=== PATIENT | male | born 1995 | race American Indian/Alaskan Native ===

== ENCOUNTER → 2017-04-25 | Emergency (ER) | payer SELFPAY ==
[~2017-04-25] MED LIST: ATIVAN IV ONE; ATIVAN IV SCH; ATIVAN ONE; GEODON IM ONE; K-DUR PO ONE; NACL 0.9% 1000 ML 1,000 ML IV ONE
[2017-04-25 06:08] LABS: Basophils % (Auto) 0.5 % (0.0-1.8); Eosinophils % (Auto) 0.6 % (0.0-4.3); Hematocrit 43.3 % (35.5-45.6); Hemoglobin 14.6 gm/dl (11.8-15.2); Mean Corpuscular HGB Conc 34 % (32-34); Mean Corpuscular Hemoglobin 30 pg (28-32); Mean Corpuscular Volume 88 fl (84-94); Platelet Count 179 K/mm3 (140-440); Red Blood Count 4.94 M/mm3 (3.65-5.03); Red Cell Distribution Width 13.6 % (13.2-15.2); White Blood Count 9.4 K/mm3 (4.5-11.0)
[2017-04-25 06:16] LABS: Anion Gap 17 mmol/L; BUN/Creatinine Ratio 14; Blood Urea Nitrogen 13 mg/dL (9-20); Calcium 9.2 mg/dL (8.4-10.2); Carbon Dioxide 25 mmol/L (22-30); Chloride 105.4 mmol/L (98-107); Glucose 122 mg/dL (75-100); Potassium 3.5 mmol/L (3.6-5.0); Sodium 144 mmol/L (137-145)
--- NOTE | 2017-04-25 06:50 | Emergency Department Report ---
ED Psych HPI - General Chief Complaint: Psych Stated Complaint: UNRESPONSIVE Time Seen by Provider: 04/25/17 06:13 Source: EMS Mode of arrival: Stretcher Limitations: Altered Mental Status - History of Present Illness Initial Comments: Unknown male presents to the hospital after being brought in by EMS. Patient is nonverbal. Patient he was standing up and staring at people outside of the QT. Patient has superficial abrasions arm and neck. He will not open eyes to voice or follow commands. He will not speak currently. - Related Data Allergies Allergy/AdvReac Type Severity Reaction Status Date / Time No Known Allergies Allergy Unverified 04/25/17 05:26 ED Review of Systems ROS: Stated complaint: UNRESPONSIVE Other details as noted in HPI Comment: Unobtainable due to pts medical conditions ED Physical Exam - General Limitations: Other - Other Other exam information: General: No limitations, patient is alert in no acute distress Head exam: Atraumatic Eyes exam: Normal appearance, pupils equal reactive to light ENT: Moist mucous membrane Neck exam: Normal inspection, full range of motion, no meningismus nontender Respiratory exam: Clear to auscultation bilateral, no wheezes, rales, crackles Cardiovascular: Normal rate and rhythm Abdomen: Soft, nondistended, and nontender, with normal bowel sounds, no rebound, or guarding Extremity: Full range of motion normal inspection no deformity Back: Normal Inspection, full range of motion, no tenderness Neurologic: Awake, will not answer questions, will not follow commands but moves all extremities equally and sensation grossly intact Psychiatric: normal affect, normal mood Skin: Superficial abrasions to arms ED Course Vital Signs 04/25/17 04/25/17 04/25/17 05:14 05:15 05:27 Temperature 98.1 F Pulse Rate 87 74 88 Respiratory 14 11 L 18 Rate Blood Pressure 146/83 146/83 Blood Pressure [Left] O2 Sat by Pulse 98 99 98 Oximetry 04/25/17 04/25/17 04/25/17 05:30 05:31 05:45 Temperature 98.1 F Pulse Rate 83 88 72 Respiratory 12 18 21 Rate Blood Pressure 146/83 153/88 Blood Pressure 146/83 [Left] O2 Sat by Pulse 99 98 100 Oximetry 04/25/17 04/25/17 04/25/17 06:00 06:15 06:30 Temperature Pulse Rate 96 H 94 H 70 Respiratory 51 H 11 L 15 Rate Blood Pressure 153/88 140/94 140/94 Blood Pressure [Left] O2 Sat by Pulse 99 98 Oximetry 04/25/17 04/25/17 04/25/17 06:45 06:54 07:00 Temperature Pulse Rate 77 81 Respiratory 15 18 8 L Rate Blood Pressure 146/78 137/90 Blood Pressure [Left] O2 Sat by Pulse 98 100 99 Oximetry 04/25/17 04/25/17 04/25/17 07:15 07:31 08:01 Temperature Pulse Rate 73 Respiratory 12 Rate Blood Pressure 132/75 132/75 140/87 Blood Pressure [Left] O2 Sat by Pulse 98 98 Oximetry 04/25/17 04/25/17 04/25/17 08:15 08:30 08:45 Temperature Pulse Rate Respiratory Rate Blood Pressure 141/81 146/65 142/74 Blood Pressure [Left] O2 Sat by Pulse 100 98 99 Oximetry 04/25/17 04/25/17 04/25/17 09:17 09:30 09:45 Temperature Pulse Rate Respiratory Rate Blood Pressure 146/65 157/90 141/87 Blood Pressure [Left] O2 Sat by Pulse 100 100 Oximetry 04/25/17 04/25/17 04/25/17 10:00 10:15 10:30 Temperature Pulse Rate Respiratory Rate Blood Pressure 140/90 140/90 143/97 Blood Pressure [Left] O2 Sat by Pulse 99 99 100 Oximetry 04/25/17 04/25/17 04/25/17 10:45 11:00 11:15 Temperature Pulse Rate Respiratory Rate Blood Pressure 143/97 142/98 142/98 Blood Pressure [Left] O2 Sat by Pulse 100 98 100 Oximetry 04/25/17 04/25/17 04/25/17 11:30 11:45 12:00 Temperature Pulse Rate Respiratory Rate Blood Pressure 141/90 141/90 139/92 Blood Pressure [Left] O2 Sat by Pulse 100 100 Oximetry 04/25/17 12:15 Temperature Pulse Rate Respiratory Rate Blood Pressure 139/92 Blood Pressure [Left] O2 Sat by Pulse 100 Oximetry - Reevaluation(s) Reevaluation #1: 04/25/17 Patient was able to ambulate in the ED without difficulty. Patient required physical restraints and Geodon 10 mg because he was agitated and attempting to walk around. Patient still not speaking or following commands even after Geodon 10 mg. Reevaluation #2: 04/25/17 15:03 Patient drowsy after Geodon. By mouth potassium has been ordered for mild hypokalemia. - Consultations Consultation #1: 04/25/17 13:40 Mental health evaluation was performed. Unable to obtain much information from patient since he is nonverbal. Awaiting further psychiatric evaluation and placement ED Medical Decision Making - Lab Data Result diagrams: 04/25/17 05:47 04/25/17 05:47 Lab Results 04/25/17 04/25/17 04/25/17 Range/Units 05:41 05:47 05:47 WBC (4.5-11.0) K/mm3 RBC (3.65-5.03) M/mm3 Hgb (11.8-15.2) gm/dl Hct (35.5-45.6) % MCV (84-94) fl MCH (28-32) pg MCHC (32-34) % RDW (13.2-15.2) % Plt Count (140-440) K/mm3 Lymph % (Auto) (13.4-35.0) % [place] % (Auto) (0.0-7.3) % Eos % (Auto) (0.0-4.3) % Baso % (Auto) (0.0-1.8) % Lymph # (1.2-5.4) K/mm3 [place]ue # (0.0-0.8) K/mm3 Eos # (0.0-0.4) K/mm3 Baso # (0.0-0.1) K/mm3 Seg Neutrophils % (40.0-70.0) % Seg Neutrophils # (1.8-7.7) K/mm3 Sodium 144 (137-145) mmol/L Potassium 3.5 L (3.6-5.0) mmol/L Chloride 105.4 (98-107) mmol/L Carbon Dioxide 25 (22-30) mmol/L Anion Gap 17 mmol/L BUN 13 (9-20) mg/dL Creatinine 0.9 (0.8-1.5) mg/dL Estimated GFR > 60 ml/min BUN/Creatinine Ratio 14 % Glucose 122 H (75-100) mg/dL POC Glucose 104 (70-105) Calcium 9.2 (8.4-10.2) mg/dL Urine Color (Yellow) Urine Turbidity (Clear) Urine pH (5.0-7.0) Ur Specific [place] (1.003-1.030) Urine Protein (Negative) mg/dL Urine Glucose (UA) (Negative) mg/dL Urine Ketones (Negative) mg/dL Urine Blood (Negative) Urine Nitrite (Negative) Urine Bilirubin (Negative) Urine Urobilinogen (<2.0) mg/dL Ur Leukocyte Esterase (Negative) Urine WBC (Auto) (0.0-6.0) /HPF Urine RBC (Auto) (0.0-6.0) /HPF Urine Mucus /HPF Urine Opiates Screen Urine Methadone Screen Ur Barbiturates Screen Ur Phencyclidine Scrn Ur Amphetamines Screen U Benzodiazepines Scrn Urine Cocaine Screen U Marijuana (THC) Screen Drugs of Abuse Note Plasma/Serum Alcohol < 0.01 (0-0.07) gm% 04/25/17 04/25/17 04/25/17 Range/Units 05:47 06:08 06:08 WBC 9.4 (4.5-11.0) K/mm3 RBC 4.94 (3.65-5.03) M/mm3 Hgb 14.6 (11.8-15.2) gm/dl Hct 43.3 (35.5-45.6) % MCV 88 (84-94) fl MCH 30 (28-32) pg MCHC 34 (32-34) % RDW 13.6 (13.2-15.2) % Plt Count 179 (140-440) K/mm3 Lymph % (Auto) 13.1 L (13.4-35.0) % [place] % (Auto) 9.0 H (0.0-7.3) % Eos % (Auto) 0.6 (0.0-4.3) % Baso % (Auto) 0.5 (0.0-1.8) % Lymph # 1.2 (1.2-5.4) K/mm3 [place] # 0.8 (0.0-0.8) K/mm3 Eos # 0.1 (0.0-0.4) K/mm3 Baso # 0.0 (0.0-0.1) K/mm3 Seg Neutrophils % 76.8 H (40.0-70.0) % Seg Neutrophils # 7.2 (1.8-7.7) K/mm3 Sodium (137-145) mmol/L Potassium (3.6-5.0) mmol/L Chloride (98-107) mmol/L Carbon Dioxide (22-30) mmol/L Anion Gap mmol/L BUN (9-20) mg/dL Creatinine (0.8-1.5) mg/dL Estimated GFR ml/min BUN/Creatinine Ratio % Glucose (75-100) mg/dL POC Glucose (70-105) Calcium (8.4-10.2) mg/dL Urine Color Yellow (Yellow) Urine Turbidity Clear (Clear) Urine pH 5.0 (5.0-7.0) Ur Specific [place] 1.020 (1.003-1.030) Urine Protein <15 mg/dl (Negative) mg/dL Urine Glucose (UA) Neg (Negative) mg/dL Urine Ketones Neg (Negative) mg/dL Urine Blood Neg (Negative) Urine Nitrite Neg (Negative) Urine Bilirubin Neg (Negative) Urine Urobilinogen < 2.0 (<2.0) mg/dL Ur Leukocyte Esterase Neg (Negative) Urine WBC (Auto) 3.0 (0.0-6.0) /HPF Urine RBC (Auto) 4.0 (0.0-6.0) /HPF Urine Mucus Few /HPF Urine Opiates Screen Presumptive negative Urine Methadone Screen Presumptive negative Ur Barbiturates Screen Presumptive negative Ur Phencyclidine Scrn Presumptive negative Ur Amphetamines Screen Presumptive negative U Benzodiazepines Scrn Presumptive negative Urine Cocaine Screen Presumptive negative U Marijuana (THC) Screen Presumptive positive Drugs of Abuse Note Disclamer Plasma/Serum Alcohol (0-0.07) gm% - Radiology Data Radiology results: report reviewed (ct head: naf) - Medical Decision Making Patient is not verbal in the ED and will not reliably follow commands. Labs and CT do not show any acute abnormality. UDS only positive for marijuana. Unfortunately there is no other contact information available for the patient - Differential Diagnosis psychosis, encephalopathy, drug abuse, intracranial lesion Critical Care Time: No Critical care attestation.: If time is entered above; I have spent that time in minutes in the direct care of this critically ill patient, excluding procedure time. ED Disposition Clinical Impression: Mutism, Medical clearance for psychiatric admission Disposition: [id number] PSY HOSP/PSY UNIT Is pt being admited?: No Condition: Stable Time of Disposition: 15:03 (awaiting acceptance)
[2017-04-25 07:14] LABS: Urine Drugs of Abuse Note Disclamer
[2017-04-25 07:25] LABS: Bilirubin,Urine NEG (Negative); Blood,Urine NEG (Negative); Ketones,Urine NEG (Negative); Leukocyte Esterase,Urine NEG (Negative); Mucus,Urine FEW /HPF; Nitrite,Urine NEG (Negative); Protein,Urine <15 mg/dL mg/dL (Negative); Urobilinogen,Urine < 2.0 mg/dL (<2.0)
--- NOTE | 2017-04-25 09:43 | Cat Scan Report ---
CT HEAD WITHOUT CONTRAST: 04/25/17 09:04 CLINICAL: Altered mental status. Nonverbal. TECHNIQUE: 2.5-mm noncontrast scans. COMPARISON:None FINDINGS: The ventricles and sulci are normal for age. No abnormal density. No mass or mass effect. No hemorrhage, edema or extra-axial collection. The sinuses are clear. Normal orbits and soft tissues. The calvarium and skull base are intact. IMPRESSION: Normal head CT.
--- NOTE | 2017-04-26 22:13 | Consultation ---
History of Present Illness - Reason for Consult Consult date: 04/26/17 Reason for consult: psychiatric evaluation - Chief Complaint Chief complaint: 21 year old male presents to the hospital after being brought in by EMS. Patient is nonverbal. Patient he was standing up and staring at people outside of the QT. He will not open eyes to voice or follow commands. He will not speak currently. He was lying in a position on the floor. It appears he ate crackers and drank juice. Otherwise, information is not able to be obtained. Medications and Allergies Allergies Allergy/AdvReac Type Severity Reaction Status Date / Time No Known Allergies Allergy Unverified 04/25/17 05:26 Home Medications Medication Instructions Recorded Confirmed Last Taken Type Unobtainable 04/25/17 04/25/17 Unknown History Past psychiatric history - Past Medical History Past Medical History: other (unk) Past Surgical History: Other (unknown) - past Psychiatric treatment and history psychiatric treatment history: unable to obtain - Social History Social history: other (unable to obtain. UDS + for THC) Mental Status Exam - Vital signs Last Vital Signs Temp 98.4 F 04/26/17 19:57 Pulse 91 H 04/26/17 19:57 Resp 18 04/26/17 19:57 BP 114/58 04/26/17 19:57 Pulse Ox 98 04/26/17 19:57 - Exam Affect: other (unable to obtain) Mood: other (unable to obtain) Thought content: other (unable to obtain) Perceptions: other (unable to obtain) Speech: paucity Concentration: other (unable to obtain) Interaction: other (did not interact) Results Result Diagrams: 04/25/17 05:47 04/25/17 05:47 All other labs normal. Assessment and Plan Assessment and plan: Impression: Psychosis UDS positive for THC ddx: substance induced psychosis check ck Recommendation: Staff to promote proper nutrition and encourage self care. review ck tomorrow Start antipsychotic 1013 and transfer to inpatient psychiatric facility for stabilization
--- NOTE | 2017-04-27 11:21 | Progress Note ---
Subjective - Reason for Consult Consult date: 04/27/17 Reason for consult: Psychiatry Follow-up - Chief Complaint Chief complaint: 'Nonverbal" 21 year old male presents to the hospital after being brought in by EMS. Today patient is nonverbal during the assessment. Patient keeps his eye closed with a rigid appearance. Per the staff, this patient have not been completing his ADL' s nor ate his breakfast this morning. No gestures of SI/HI's. Mental Status Exam - Vital signs Last Vital Signs Temp 98.3 F 04/27/17 09:38 Pulse 97 H 04/27/17 09:38 Resp 20 04/27/17 09:38 BP 133/94 04/27/17 09:38 Pulse Ox 100 04/27/17 09:38 - Exam Narrative exam: Unable to complete MSE because of patient's condition. 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 Substance Use Do (marijuana). Today patient is nonverbal during the assessment. Patient keeps his eye closed with a rigid appearance. CK 1348. DDxx: Substance Induced Psychosis Recommendation: Continue 1013 with placement to inpatient psy services. Start Ativan 1 mg IM TID for catatonia. Staff to promote proper nutrition and encourage self care. Recommend GI/DVT prophylaxis. Try to gather collateral information to determine proper treatment.
[2017-04-27] MEDS: ATIVAN IM SCH ×2 (16:14→21:03)
[2017-04-28] MEDS: ATIVAN IM SCH ×2 (09:27→15:22)
--- NOTE | 2017-04-28 11:04 | Progress Note ---
Subjective - Reason for Consult Consult date: 04/28/17 Reason for consult: Psychiatry Follow-up - Chief Complaint Chief complaint: "How are" 21 year old male presents to the hospital after being brought in by EMS. Today patient is calm and cooperative during the assessment. He stated that he smoked a "different type of marijuana" prior to being admitted to [facility]. He stated that he felt like someone was trying to harm him after smoking the marijuana. He denies a mental health dx. Per collateral from his mother Fely Mccormack, she stated that this is new behavior for her son. She stated that he smoke marijuana often. She confirms that he does not have a mental health dx. He stated that he would like a referral for outpatient rehab services for marijuana use. He denies SI/HI's and AVH's. He denies depression symptoms. 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 Substance Use Do (marijuana). Today patient is calm and cooperative during the assessment. Patient is not rigid. Psychosis has resolved. CK 890. DDx: Substance Induced Psychosis Recommendation: Rescind 1013. Patient given outpatient rehab services for [facility]. Discusses the importance to abstain from recreational drug use.
--- NOTE | 2017-04-28 20:47 | Emergency Department Report ---
Blank Doc - Documentation Documentation: Patient has been in the ED for several days initially presented with psychosis with catatonia and that has since resolved. Patient is now able to speak in any acute marijuana use. Psychiatric evaluation complaints. Recommend to rescind 1013 and outpatient follow-up likely and time health and to stop marijuana use. CKs have trended downward with IV fluids in the ED
[2017-04-29 09:31] VITALS: BP 107/77
== END ==
LOC: EEVIPCON 05:08 → EDBD 05:08 → ED 05:08
DX: R47.01 Aphasia (principal)
CPT/HCPCS: 36415; 70450; 80048; 80307; 81001; 82962; 85025; 96361; 96372; 96374; 99285; G0480; J3486; 80320; 82550; J2060; J7030